=== PATIENT | female | born 1995 | race African-American/Black ===

== ENCOUNTER 2023-04-22 11:45 | Emergency (ER) | payer OTHER ==
[~2023-04-22] VITALS: Ht 154.9 cm; Wt 72.6 kg
[2023-04-22 15:16] VITALS: BP 122/88
== END 2023-04-22 15:26 | disposition home or self-care (01) ==
LOC: ER 11:47
DX: O90.0 Disruption of cesarean delivery wound (principal); Z98.890 Other specified postprocedural states
CPT/HCPCS: 99281